=== PATIENT | female | born 1985 | race Two or more races ===

== ENCOUNTER 2019-11-30 07:44 | Emergency (ER) | payer OTHER ==
--- NOTE | 2019-11-30 08:11 | EDM.PDOC ---
ED HPI GENERAL MEDICAL PROBLEM - General Chief Complaint: General Stated Complaint: FELL- HURT RIGHT HAND, HEAD Time Seen by Provider: 11/30/19 08:01 Source of Information: Reports: Patient, RN Notes Reviewed History Limitations: Reports: No Limitations - History of Present Illness INITIAL COMMENTS - FREE TEXT/NARRATIVE: This is a 34-year-old female who presents to the emergency room with a chief complaint of headache, right arm and hand pain, neck pain. Patient states she fell today has shooting pain to the head. Patient states she fell last week with similar symptoms. Patient was at work when the incident happened. Patient admits to loss of consciousness Onset: Today Duration: Week(s): (3), Getting Worse Location: Reports: Head, Neck, Upper Extremity, Left Quality: Reports: Burning, Sharp Severity: Moderate Improves with: Reports: None Worsens with: Reports: None Associated Symptoms: Reports: No Other Symptoms back,neck,headache Pain Score (Numeric/FACES): 10 - Related Data Allergies Allergy/AdvReac Type Severity Reaction Status Date / Time No Known Allergies Allergy Verified 11/30/19 08:01 Home Meds: Home Meds Ibuprofen [Motrin] 600 mg PO Q8H PRN #20 tab 11/30/19 [Rx] ED ROS GENERAL - Review of Systems Review Of Systems: See Below Constitutional: Reports: No Symptoms, Fatigue Respiratory: Reports: No Symptoms Cardiovascular: Reports: No Symptoms Endocrine: Reports: No Symptoms GI/Abdominal: Reports: No Symptoms : Reports: No Symptoms Musculoskeletal: Reports: No Symptoms, Arm Pain Skin: Reports: No Symptoms Neurological: Reports: Headache, Numbness Psychiatric: Reports: No Symptoms Hematologic/Lymphatic: Reports: No Symptoms Immunologic: Reports: No Symptoms ED EXAM, GENERAL - Physical Exam Exam: See Below Exam Limited By: No Limitations General Appearance: Alert, WD/WN, No Apparent Distress Eye Exam: Bilateral Eye: Normal Fundi, Normal Inspection Nose: Normal Inspection, Normal Mucosa Throat/Mouth: Normal Inspection, Normal Lips Head: Atraumatic, Normocephalic Neck: Normal Inspection, Supple, Non-Tender Respiratory/Chest: No Respiratory Distress, Lungs Clear, Normal Breath Sounds, No Accessory Muscle Use Cardiovascular: Normal Peripheral Pulses, Regular Rate, Rhythm, No JVD, No Murmur GI/Abdominal: Normal Bowel Sounds, Soft, Non-Tender (Female) Exam: Deferred Rectal (Female) Exam: Deferred Neurological: Alert, Oriented, CN II-XII Intact, Normal Cognition, Normal Gait, Normal Reflexes, No Motor/Sensory Deficits Psychiatric: Anxious Skin Exam: Warm, Dry, Intact, Normal Color EKG INTERPRETATION EKG Date: 11/30/19 Time: 10:17 [place]: Normal P-Wave: Present QRS: Normal ST-T: Normal QT: Normal EKG Interpretation Comments: Normal sinus rhythm borderline short NV interval levels no evidence of acute NH or cardiac arrhythmia Course - Vital Signs Text/Narrative:: This 34-year-old female presents to the emergency room with chief complaint of headaches, right arm pain and right knee pain after fall. Patient states she might have loss of consciousness, but was awake the entire time. Patient has no chest pain shortness of breath. Patient was at work at the time. Her graph Exam was noncontributory. CAT scans of the head neck are normal. Patient's EKG was normal. All patient' s laboratory results were negative. Assessment: Patient instructed to follow-up with primary care physician as needed. Probable fall. Last Recorded V/S: Last Vital Signs Temp 96.5 F L 11/30/19 08:02 Pulse 74 11/30/19 08:02 Resp 18 11/30/19 08:02 BP 122/82 11/30/19 08:02 Pulse Ox 97 11/30/19 08:02 - Orders/Labs/Meds Orders: Active Orders 24 hr Category Date Time Status EKG 12 Lead [EKG Documentation Completion] [RC] ROUTINE Care 11/30/19 08:16 Active Labs: Laboratory Tests 11/30/19 11/30/19 11/30/19 Range/Units 08:37 08:46 08:46 WBC 7.88 (4.0-11.0) K/uL RBC 4.45 (4.30-5.90) M/uL Hgb 13.8 (12.0-16.0) g/dL Hct 42.0 (36.0-46.0) % MCV 94.4 (80.0-98.0) fL MCH 31.0 (27.0-32.0) pg MCHC 32.9 (31.0-37.0) g/dL RDW Std Deviation 42.5 (28.0-62.0) fl RDW Coeff of [place] 12 (11.0-15.0) % Plt Count 263 (150-400) K/uL MPV 9.30 (7.40-12.00) fL Neut % (Auto) 50.5 (48.0-80.0) % Lymph % (Auto) 39.5 (16.0-40.0) % [place] % (Auto) 7.0 (0.0-15.0) % Eos % (Auto) 2.7 (0.0-7.0) % Baso % (Auto) 0.3 (0.0-1.5) % Neut # (Auto) 4.0 (1.4-5.7) K/uL Lymph # (Auto) 3.1 H (0.6-2.4) K/uL [place] # (Auto) 0.6 (0.0-0.8) K/uL Eos # (Auto) 0.2 (0.0-0.7) K/uL Baso # (Auto) 0.0 (0.0-0.1) K/uL Nucleated RBC % 0.0 /100WBC Nucleated RBCs # 0 K/uL Sodium 141 (136-145) mmol/L Potassium 3.8 (3.5-5.1) mmol/L Chloride 104 (98-107) mmol/L Carbon Dioxide 27.0 (21.0-32.0) mmol/L BUN 10 (7.0-18.0) mg/dL Creatinine 0.6 (0.6-1.0) mg/dL Est Cr Clr Drug Dosing 103.50 mL/min Estimated GFR (MDRD) > 60.0 ml/min Glucose 96 (74-106) mg/dL Calcium 9.0 (8.5-10.1) mg/dL Total Bilirubin 0.3 (0.2-1.0) mg/dL AST 87 H (15-37) IU/L ALT 178 H (14-63) IU/L Alkaline Phosphatase 95 (46-116) U/L Total Protein 7.8 (6.4-8.2) g/dL Albumin 3.9 (3.4-5.0) g/dL Globulin 3.9 (2.6-4.0) g/dL Albumin/Globulin Ratio 1.0 (0.9-1.6) Urine HCG, Qual NEGATIVE (NEGATIVE) Departure - Departure Time of Disposition: 10:12 Disposition: Home, Self-Care 01 Condition: Good Clinical Impression: Fall (on)(from) incline, initial encounter - Discharge Information *PRESCRIPTION DRUG MONITORING PROGRAM REVIEWED*: No *COPY OF PRESCRIPTION DRUG MONITORING REPORT IN PATIENT TARA: No Prescriptions: Ibuprofen [Motrin] 600 mg PO Q8H PRN #20 tab PRN Reason: Pain (Moderate 4-6) Referrals: PCP,None [Primary Care Provider] - Forms: ED Department Discharge Sepsis Event Note - Focused Exam Vital Signs: Vital Signs Temp Pulse Resp BP Pulse Ox 11/30/19 08:02 96.5 F L 74 18 122/82 97 Date Exam was Performed: 11/30/19 Time Exam was Performed: 10:17 - My Orders Last 24 Hours: My Active Orders 11/30/19 08:16 EKG 12 Lead [EKG Documentation Completion] [RC] ROUTINE - Assessment/Plan Last 24 Hours: My Active Orders 11/30/19 08:16 EKG 12 Lead [EKG Documentation Completion] [RC] ROUTINE
--- NOTE | 2019-11-30 08:21 | EDM.PDOC ---
ED HPI GENERAL MEDICAL PROBLEM - General Chief Complaint: General Stated Complaint: FELL- HURT RIGHT HAND, HEAD Time Seen by Provider: 11/30/19 08:01 Source of Information: Reports: Patient, RN Notes Reviewed History Limitations: Reports: No Limitations - History of Present Illness INITIAL COMMENTS - FREE TEXT/NARRATIVE: This is a 34-year-old female who presents to the emergency room with a chief complaint of headache, right arm and hand pain, neck pain. Patient states she fell today has shooting pain to the head. Patient states she fell last week with similar symptoms. Patient was at work when the incident happened. Patient admits to loss of consciousness Onset: Today Duration: Week(s): (3), Getting Worse Location: Reports: Head, Neck, Upper Extremity, Left Quality: Reports: Burning, Sharp Severity: Moderate Improves with: Reports: None Worsens with: Reports: None Associated Symptoms: Reports: No Other Symptoms - Related Data Allergies Allergy/AdvReac Type Severity Reaction Status Date / Time No Known Allergies Allergy Verified 11/30/19 08:01 Home Meds: Home Meds . [No Known Home Meds] 11/30/19 [History] Past Medical History - Infectious Disease History Infectious Disease History: Reports: None - Past Surgical History Female Surgical History: Reports: Section Social & Family History - Family History Family Medical History: Noncontributory - Tobacco Use Smoking Status *Q: Never Smoker - Recreational Drug Use Recreational Drug Use: No ED EXAM, GENERAL - Physical Exam Free Text/Narrative:: This is a 34-year-old female who presents to the emergency room with a chief complaint of headache, right arm and hand pain, neck pain. Patient states she fell today has shooting pain to the head. Patient states she fell last week with similar symptoms. Patient was at work when the incident happened. Patient admits to loss of consciousness Exam Limited By: No Limitations General Appearance: Alert, WD/WN, No Apparent Distress Nose: Normal Inspection, Normal Mucosa Throat/Mouth: Normal Inspection, Normal Lips Head: Atraumatic, Normocephalic Neck: Normal Inspection, Supple, Non-Tender Respiratory/Chest: No Respiratory Distress, Lungs Clear, Normal Breath Sounds, No Accessory Muscle Use Cardiovascular: Normal Peripheral Pulses, Regular Rate, Rhythm, No JVD, No Murmur GI/Abdominal: Normal Bowel Sounds, Soft, Non-Tender Neurological: Alert, Oriented, CN II-XII Intact, Normal Cognition, Normal Gait, Normal Reflexes, No Motor/Sensory Deficits Psychiatric: Anxious Skin Exam: Warm, Dry, Intact, Normal Color Course - Vital Signs Last Recorded V/S: Last Vital Signs Temp 96.5 F L 11/30/19 08:02 Pulse 74 11/30/19 08:02 Resp 18 11/30/19 08:02 BP 122/82 11/30/19 08:02 Pulse Ox 97 11/30/19 08:02 - Orders/Labs/Meds Orders: Active Orders 24 hr Category Date Time Status EKG 12 Lead [EKG Documentation Completion] [RC] ROUTINE Care 11/30/19 08:16 Active Departure - Discharge Information Referrals: PCP,None [Primary Care Provider] - Forms: ED Department Discharge Sepsis Event Note - Evaluation Sepsis Screening Result: No Definite Risk - Focused Exam Vital Signs: Vital Signs Temp Pulse Resp BP Pulse Ox 11/30/19 08:02 96.5 F L 74 18 122/82 97 Date Exam was Performed: 11/30/19 Time Exam was Performed: 08:18 - My Orders Last 24 Hours: My Active Orders 11/30/19 08:16 EKG 12 Lead [EKG Documentation Completion] [RC] ROUTINE - Assessment/Plan Last 24 Hours: My Active Orders 11/30/19 08:16 EKG 12 Lead [EKG Documentation Completion] [RC] ROUTINE
[2019-11-30 09:19] LABS: BLOOD UREA NITROGEN,BUN 10 mg/dL (7.0-18.0); CHLORIDE,CL 104 mmol/L (98-107); GLUCOSE RANDOM 96 mg/dL (74-106); POTASSIUM,K 3.8 mmol/L (3.5-5.1); SODIUM,NA 141 mmol/L (136-145)
--- NOTE | 2019-11-30 09:49 | CT ---
CT cervical spine Technique: Multiple axial sections were obtained from above C1 inferiorly to the mid T4 level. Reconstructed sagittal and coronal images were reviewed. Comparison: No prior cervical spine imaging. Findings: Vertebral body heights and disc spaces are maintained. Vertebral bodies and posterior arches are intact. No fracture is seen. No bony central or bony neural foraminal stenosis is seen. No abnormal subluxation is appreciated. No gross disc herniation is seen. Visualized lung apices are clear. Impression: 1. Nothing acute is appreciated on CT study of the cervical spine. Diagnostic code #1 This report was dictated in MDT
--- NOTE | 2019-11-30 09:50 | CT ---
Head CT Technique: Multiple axial sections through the brain were obtained. Intravenous contrast was not utilized. Comparison: No prior intracranial imaging is available. Findings: Ventricles along with basal cisterns and sulci over the convexities are within normal limits for the patient's age. No abnormal parenchymal densities are seen. No evidence of intracranial hemorrhage. No midline shift or mass-effect is seen. Bone window settings were reviewed. No acute calvarial abnormality is appreciated. Visualized mastoid sinuses and paranasal sinuses show nothing acute. Impression: 1. Nothing acute is appreciated on noncontrast head CT exam. Diagnostic code #1 This report was dictated in MDT
--- NOTE | 2019-11-30 09:50 | CR ---
Right hand: 2 views of the right hand were obtained. Comparison: No prior hand exam. Joint spaces are preserved. No fracture, dislocation or other bony abnormality is identified. Impression: 1. No abnormality is identified on 2 view right and exam. Diagnostic code #1 This report was dictated in MDT
== END 2019-11-30 10:30 | disposition home or self-care (01) ==
LOC: MW.ED 07:44
DX: M25.561 Pain in right knee (principal); W10.2XXA Fall (on)(from) incline, initial encounter; Y99.0 Civilian activity done for income or pay
CPT/HCPCS: 36415; 70450; 70450-26; 72125; 72125-26; 73120-26-RT; 73120-RT; 80053; 81025; 85025; 93005; 99283; 99284-25

== ENCOUNTER 2022-03-16 11:18 | Emergency (ER) | payer OTHER ==
[2022-03-16] MEDS ORDERED: Sodium Chloride 0.9% 1,000 ML IV ONE (11:35)
[2022-03-16 12:27] LABS: BLOOD UREA NITROGEN,BUN 11 mg/dL (7.0-18.0); CARBON DIOXIDE,CO2 28.4 mmol/L (21.0-32.0); CHLORIDE,CL 102 mmol/L (98-107); ESTIMATED GFR 124 mL/min (>60); GLUCOSE RANDOM 99 mg/dL (74-106); POTASSIUM,K 3.5 mmol/L (3.5-5.1); SODIUM,NA 139 mmol/L (136-145)
== END 2022-03-16 13:05 | disposition home or self-care (01) ==
LOC: MW.ED 11:18
DX: R55 Syncope and collapse (principal)
CPT/HCPCS: 36415; 80053; 83605; 84484; 85025; 93005; 96360; 99284; J7030; 93010

== ENCOUNTER 2023-02-20 21:45 | Observation (INO) | payer OTHER ==
[2023-02-20] MEDS ORDERED: Sodium Chloride 0.9% 10 ML Syringe FLUSH PRN (22:12)
[2023-02-20] MEDS ORDERED: Sodium Chloride 0.9% 2.5 ML Syringe FLUSH PRN (22:12)
[2023-02-20] MEDS ORDERED: diphenhydrAMINE 50 MG/ML SDV IVPUSH ONE (22:13)
[2023-02-20] MEDS ORDERED: Metoclopramide 10 MG/2 ML SDV IVPUSH ONE (22:13)
[2023-02-20 23:01] LABS: BASOPHILS PERCENT AUTO 0.3 % (0.0-1.5); EOSINOPHILS ABSOLUTE AUTO 0.2 K/uL (0.0-0.7); EOSINOPHILS PERCENT AUTO 2.9 % (0.0-7.0); HEMATOCRIT 39.2 % (36.0-46.0); HEMOGLOBIN 13.5 g/dL (12.0-16.0); LYMPHOCYTES ABSOLUTE AUTO 2.8 K/uL (0.6-2.4); LYMPHOCYTES PERCENT AUTO 35.4 % (16.0-40.0); MEAN CORPUSCULAR HGB CONC 34.4 g/dL (31.0-37.0); MEAN CORPUSCULAR VOLUME 90.1 fL (80.0-98.0); MONOCYTES ABSOLUTE AUTO 0.6 K/uL (0.0-0.8); NEUTROPHILS ABSOLUTE AUTO 4.3 K/uL (1.4-5.7); NEUTROPHILS PERCENT AUTO 54.4 % (48.0-80.0); NRBC ABSOLUTE 0 K/uL; PLATELET COUNT,PLT 304 K/uL (150-400); RED BLOOD CELL COUNT 4.35 M/uL (4.30-5.90); WHITE BLOOD CELL COUNT,WBC 7.89 K/uL (4.0-11.0)
[2023-02-20 23:04] LABS: APPEARANCE,URINE CLEAR; BILIRUBIN,URINE NEGATIVE (NEGATIVE); COLOR,URINE YELLOW; GLUCOSE,URINE NEGATIVE (NEGATIVE); KETONES,URINE NEGATIVE (NEGATIVE); LEUKOCYTE ESTERASE,URINE TRACE (NEGATIVE); NITRITE,URINE NEGATIVE (NEGATIVE); OCCULT BLOOD,URINE TRACE-INTACT (NEGATIVE); PROTEIN,URINE NEGATIVE (NEGATIVE); UROBILINOGEN,URINE 0.2 EU/dL (<2.0)
[2023-02-20 23:06] LABS: INR < 0.93 (0.86-1.11)
[2023-02-20 23:14] LABS: AMPHETAMINES SCREEN, URINE NEGATIVE (CUTOFF=500); BARBITURATE SCREEN,URINE NEGATIVE (CUTOFF=200); BENZODIAZEPINES SCREEN,URINE NEGATIVE (CUTOFF=150); BUPRENORPHINE SCREEN,URINE NEGATIVE (CUTOFF=10); METHADONE SCREEN, URINE NEGATIVE (CUTOFF=200); METHAMPHETAMINES SCREEN, URINE NEGATIVE (CUTOFF=500); OXYCODONE SCREEN,URINE NEGATIVE (CUT0FF=100); PCP SCREEN,URINE NEGATIVE (CUTOFF=25); PROPOXYPHENE SCREEN,URINE NEGATIVE (CUTOFF=300); THC SCREEN,URINE 20 NG/ML NEGATIVE (CUTOFF=50)
[2023-02-20 23:17] LABS: BACTERIA,URINE FEW (NEGATIVE); EPITHELIAL CELLS,URINE FEW (NONE-FEW); RBC,URINE 0-1 (0-2/HPF)
[2023-02-20 23:26] LABS: ALANINE AMINOTRANSFERASE,ALT 63 IU/L (14-63); ALBUMIN 3.9 g/dL (3.4-5.0); ALKALINE PHOSPHATASE 96 U/L (46-116); ASPARTATE AMNIOTRANSFERASE,AST 33 IU/L (15-37); BILIRUBIN TOTAL 0.2 mg/dL (0.2-1.0); BLOOD UREA NITROGEN,BUN 14 mg/dL (7.0-18.0); CALCIUM 9.2 mg/dL (8.5-10.1); CARBON DIOXIDE,CO2 23.2 mmol/L (21.0-32.0); CHLORIDE,CL 103 mmol/L (98-107); CREATININE 0.8 mg/dL (0.6-1.0); EST CRCL DRUG DOSING (CG) 68.49 mL/min; GLUCOSE RANDOM 117 mg/dL (74-106); POTASSIUM,K 3.4 mmol/L (3.5-5.1); SODIUM,NA 138 mmol/L (136-145)
[2023-02-20 23:27] LABS: ESTIMATED GFR 97 mL/min (>60); ETHANOL BLOOD MEDICAL < 3.0 mg/dL
[2023-02-20] MEDS ORDERED: Iopamidol 755 MG/ML 500 ML Multipack Bottle IVPUSH ONE (23:37)
[2023-02-21 00:03] LABS: LACTIC ACID 0.9 mmol/L (0.4-2.0)
[2023-02-21] MEDS ORDERED: Sodium Chloride 0.9% 2.5 ML Syringe FLUSH PRN (01:29)
[2023-02-21] MEDS ORDERED: Polyethylene Glycol 3350 Powder 17 GM Packet PO PRN (01:29)
[2023-02-21] MEDS ORDERED: Acetaminophen 325 MG Tab PO PRN (01:29)
[2023-02-21] MEDS ORDERED: Sodium Chloride 0.9% 10 ML Syringe FLUSH PRN (01:29)
[2023-02-21] MEDS ORDERED: Ondansetron 4 MG/2 ML SDV IVPUSH PRN (01:29)
[2023-02-21] MEDS ORDERED: Albuterol/Ipratropium 3.0-0.5 MG/3 ML Neb Soln NEB PRN (01:29)
[2023-02-21 06:44] LABS: HEMATOCRIT 35.7 % (36.0-46.0); MEAN CORPUSCULAR HEMOGLOBIN 30.2 pg (27.0-32.0); MEAN CORPUSCULAR HGB CONC 33.6 g/dL (31.0-37.0); MEAN CORPUSCULAR VOLUME 89.9 fL (80.0-98.0); RED BLOOD CELL COUNT 3.97 M/uL (4.30-5.90); WHITE BLOOD CELL COUNT,WBC 6.85 K/uL (4.0-11.0)
[2023-02-21 06:58] LABS: HEMOGLOBIN A1C 5.6 %
[2023-02-21 07:49] LABS: ALBUMIN 3.4 g/dL (3.4-5.0); CALCIUM 8.5 mg/dL (8.5-10.1); CARBON DIOXIDE,CO2 22.9 mmol/L (21.0-32.0); CREATININE 0.7 mg/dL (0.6-1.0); EST CRCL DRUG DOSING (CG) 86.18 mL/min; POTASSIUM,K 3.5 mmol/L (3.5-5.1); PROTEIN TOTAL,TP 6.7 g/dL (6.4-8.2)
[2023-02-21 07:50] LABS: BILIRUBIN TOTAL 0.2 mg/dL (0.2-1.0); MAGNESIUM 2.2 mg/dL (1.8-2.4); TSH ULTRASENSITIVE 5.02 uIU/mL (0.36-3.74)
[2023-02-21 08:06] LABS: T4 FREE 0.8 ng/dL (0.76-1.46)
[2023-02-21] MEDS ORDERED: SUMAtriptan 50 MG Tab PO PRN (09:00)
[2023-02-21] MEDS ORDERED: Gadobenate Dimeglumine 529 MG/ML 20 ML SDV IVPUSH STA (09:02)
[2023-02-21] MEDS ORDERED: Ketorolac 30 MG/ML SDV IVPUSH ONE (11:37)
[2023-02-21] MEDS ORDERED: Dexamethasone 10 MG/ML SDV IVPUSH ONE (11:42)
[2023-02-21] MEDS ORDERED: Lactated Ringers 1,000 ML IV SCH (11:45)
[2023-02-21] MEDS ORDERED: Pantoprazole 40 MG in Sodium Chloride 0.9% 10 ML IVPUSH SCH (12:00)
[2023-02-21] MEDS ORDERED: Topiramate 100 MG Tab PO SCH (21:00)
== END 2023-02-21 16:00 | disposition home or self-care (01) ==
LOC: MW.ED 21:45 → MW.MS 02-21 01:57
PROVIDERS: ADMIT Family Medicine; ATTEND Family Medicine
DX: G43.019 Migraine without aura, intractable, without status migrainosus (principal); E66.9 Obesity, unspecified; E11.9 Type 2 diabetes mellitus without complications; Z98.890 Other specified postprocedural states; Z79.899 Other long term (current) drug therapy; Z79.84 Long term (current) use of oral hypoglycemic drugs
CPT/HCPCS: 36415; 70450; 70496; 70498; 70553; 80053; 80061; 80305; 80307; 81001; 82607; 83036; 83605; 83735; 84439; 84443; 84484; 84703; 85025; 85027; 85610; 86038; 86592; 97161; A9270; A9577; C9113; J1100; J1200; J1885; J2765; J3490; J7120; Q9967; 99285